=== PATIENT | female | born 1990 | race Caucasian/White ===

== ENCOUNTER 2023-10-29 02:38 | Emergency (ER) | payer SELFPAY ==
[~2023-10-29] VITALS: Ht 162.6 cm; Wt 78.9 kg
[2023-10-29] MEDS ORDERED: AMOX-580 PO (03:10)
[2023-10-29] MEDS ORDERED: amox tr/potassium clavulanate 875/125mg TAB PO ONE (03:10)
[2023-10-29] MEDS ORDERED: ketorolac trometh inj. 60 MG/2 ML VIAL IM ONE (03:10)
[2023-10-29 03:30] VITALS: BP 117/84; PULSE 69; RESP 14; TEMP 98.9; O2SAT 98
== END 2023-10-29 03:32 | disposition home or self-care (01) ==
LOC: ER 02:39
DX: S61.232A Puncture wound without foreign body of right middle finger without damage to nail, initial encounter (principal); Z79.2 Long term (current) use of antibiotics; W55.01XA Bitten by cat, initial encounter; Y93.89 Activity, other specified; Y92.89 Other specified places as the place of occurrence of the external cause; Y99.8 Other external cause status
CPT/HCPCS: 96372; 99283; J1885